=== PATIENT | male | born 1955 | race Caucasian/White ===

== ENCOUNTER → 2017-08-16 | Day surgery (SDC) | payer OTHER ==
[2017-08-15 08:27] VITALS: BMI 35.9
[~2017-08-16] MED LIST: BUPIVACAINE HCL/PF 0.5% (5MG/ML) 10 ML VIAL ONE; DEXAMETHASONE SOD PHOSPHATE 4 MG/1 ML VIAL ONE; LACTATED RINGERS SOLUTION 1,000 ML IV SCH; LIDOCAINE HCL/PF 2% SDV 5ML VIAL ONE; MIDAZOLAM HCL 2 MG/2 ML SINGLE DOSE VIAL ONE; ONDANSETRON 4 MG/2 ML VIAL IVPUSH PRN; PROPOFOL 20 ML ONE; oxyCODONE HCL 5 MG TABLET PO PRN
--- NOTE | 2017-08-16 11:04 | HP ---
[facility]ellite [facility] - Chief Complaint Chief Complaint: left knee pain - Past Medical History Allergies/Adverse Reactions: Allergies Allergy/AdvReac Type Severity Reaction Status Date / Time No Known Drug Allergies AdvReac Verified 08/15/17 08:31 - Current Medications Current Medications: Home Medications Medication Instructions Recorded Ascorbic Acid [Vitamin C -] 1,000 mg PO DAILY 11/17/13 Cholecalciferol (Vitamin D3) 1,000 unit PO DAILY 11/17/13 [Vitamin D] Garlic 1 each PO DAILY 11/17/13 Multivitamin [Multivitamins] 1 each PO DAILY 11/17/13 Losartan/Hydrochlorothiazide 1 each PO DAILY 07/11/16 [Losartan-Hctz 100-25 mg Tab] Vitamin B Complex 1 each PO DAILY 07/11/16 Oxycodone HCl/Acetaminophen 1 - 2 tab PO Q6H #30 tab MDD 8 08/16/17 [Percocet 5-325 mg Tablet -] Satellite Physical Exam - Physical Examination General Appearance: Well Nourished ENT: Clear Lung: Normal air movement Heart: Regular rate & rhythm Extremities: Other (left knee- + swelling, + ttp, decr rom, + mcmurrays, +apleys , nvi MRI + mmt, acl sprain) Neurological: Intact, Alert, Oriented Satellite Impression/Plan - Impression/Plan Impression: left knee internal derangement Operative Procedure: left knee arthroscopy Date to be Performed: 08/16/17
--- NOTE | 2017-08-16 13:30 | OP ---
Operative Note - Note: Operative Date: 08/16/17 Pre-Operative Diagnosis: LEFT KNEE INTERNAL DEARANGEMENT Operation: ARTHROSCOPY LEFT KNEE WITH MM, LM, AND CHONDROPLASTY OF THE TROCHLEA Post-Operative Diagnosis: Same as Pre-op Surgeon: Jomar Giordano Anesthesia: General Estimated Blood Loss (mls): 0 Operative Report Dictated: Yes
[2017-08-16 13:56] VITALS: TEMP 97.7
[2017-08-16 15:34] VITALS: BP 158/79; PULSE 83
--- NOTE | 2017-08-17 15:02 | OP ---
DATE OF OPERATION: 08/16/2017 PREOPERATIVE DIAGNOSIS: Internal derangement, left knee. POSTOPERATIVE DIAGNOSIS: Internal derangement, left knee. PROCEDURE: Arthroscopy, left knee, with partial medial and lateral meniscectomies and chondroplasty of the trochlea. SURGICAL ATTENDING: Jomar Giordano MD ANESTHESIA: General with LMA. CLOSURE: 4-0 nylon COMPLICATIONS: None. CONDITION: To recovery in stable condition. DESCRIPTION OF OPERATIVE PROCEDURE: Patient taken to the operating room on August 16, 2017. General anesthesia with LMA was administered by the anesthesiologist. Left lower extremity was prepped and draped in the usual sterile fashion. The medial and lateral infrapatellar portal sites were infiltrated with 1% Xylocaine with epinephrine. The 2 portals were then made with a 15-blade with blunt trocar. Scope was placed in the lateral infrapatellar portal and up into the suprapatellar pouch. The knee was inflated with a cocktail of 10 mL of 1% Xylocaine, 10 mL of 0.5% Marcaine, and 20 mL of arthroscopic fluid. This was allowed to sit in the knee for a few minutes to anesthetize the inside of the knee. The procedure was then started. The suprapatellar pouch was visualized to be clean. The medial and lateral gutters were visualized to be clean. The undersurfaces of the patella and trochlea were basically intact except for some grade 3 changes in the central portion of the trochlea. This was debrided of any loose articular cartilage using the arthroscopic shaver. With valgus stress on the knee, the medial compartment was entered. The medial meniscus was visualized and probed, found to have a complex tear debrided back to stable meniscal tissue utilizing meniscal biter and arthroscopic shaver. The medial femoral condyle was found to be intact, as was the medial tibial plateau. At 90 degrees the ACL was visualized and probed, found to be intact. In the figure of 4 position the lateral compartment was entered. The lateral meniscus had some midline radial tears. This was debrided back to smooth and stable meniscal tissues using meniscal biter and arthroscopic shaver. The lateral femoral condyle was found to be intact, as well as the lateral tibial plateau. The knee was irrigated with copious amounts of irrigation. The portals were closed with 4-0 nylon. Prior closure, 20 mL of 0.5% Marcaine was infused into the knee for postoperative analgesia. Sterile pressure dressing was placed over the knee, the patient awakened from anesthesia and transferred to recovery in stable condition with no complication. ESTIMATED BLOOD LOSS: Negligible. Bernabe [id number]
--- NOTE | 2017-08-19 17:00 | PATH ---
Surgical Pathology Report Patient Name: JENNY CHILD [facility]. Rec. #: [id number] /Age/Gender: 1955 (Age: 62) / M Account: [id number] Location: [facility] SURGICAL Taken: 08/16/2017 Received: 08/16/2017 Reported: 08/19/2017 Physicians: Jomar Giordano M.D. Specimen(s) Received LEFT KNEE SHAVINGS Clinical History Meniscus tear left knee Final Diagnosis KNEE SHAVINGS, LEFT, ARTHROSCOPY, MEDIAL AND LATERAL PARTIAL MENISCECTOMY AND CHONDROPLASTY: FRAGMENTS OF BENIGN CARTILAGE, FIBROADIPOSE TISSUE, AND SYNOVIUM. Electronically Signed Shanna Machado M.D. Gross Description Received in formalin, labeled "left knee shaving," is a 3.5 x 2.4 x 0.3 cm. aggregate of nuñez-yellow soft tissue fragments. A veterans contact representative portion is submitted in one cassette. 08/16/201708/16/2017
== END | disposition home or self-care (01) ==
LOC: JASU-SURG 10:53
PROVIDERS: ATTEND Orthopaedic Surgery
PROC: 0SBD4ZZ Excision of Left Knee Joint, Percutaneous Endoscopic Approach (ICD-10-PCS; principal; 2017-08-16 13:15)
DX: S83.232A Complex tear of medial meniscus, current injury, left knee, initial encounter (principal); X58.XXXA Exposure to other specified factors, initial encounter; Y93.9 Activity, unspecified; Y92.9 Unspecified place or not applicable
CPT/HCPCS: 88304-TC; 94760

== ENCOUNTER 2021-04-12 04:37 | Day surgery (SDC) | payer OTHER ==
[2021-04-11 10:41] VITALS: BMI 31.1
[2021-04-12] MEDS ORDERED: DEXAMETHASONE SOD PHOSPHATE 10 MG/1 ML VIAL ONE (08:52)
[2021-04-12] MEDS ORDERED: BUPIVACAINE HCL/PF 0.5% (5MG/ML) 10 ML VIAL ONE (08:52)
[2021-04-12] MEDS ORDERED: MIDAZOLAM HCL 2 MG/2 ML SINGLE DOSE VIAL ONE ×3 (08:58→09:29)
[2021-04-12] MEDS ORDERED: DEXAMETHASONE SOD PHOSPHATE 4 MG/1 ML VIAL ONE (09:28)
[2021-04-12] MEDS ORDERED: ONDANSETRON 4 MG/2 ML VIAL ONE (09:28)
[2021-04-12] MEDS ORDERED: ceFAZolin SODIUM 1 GM VIAL ONE (09:28)
[2021-04-12] MEDS ORDERED: LACTATED RINGERS SOLUTION 1,000 ML IV SCH (09:30)
[2021-04-12] MEDS ORDERED: oxyCODONE HCL 5 MG TABLET PO PRN (09:30)
[2021-04-12] MEDS ORDERED: ONDANSETRON 4 MG/2 ML VIAL IVPUSH PRN (09:30)
[2021-04-12] MEDS ORDERED: ACETAMINOPHEN 1000 MG/100 ML VIAL (NON FORMULARY) IVPB ONE (09:31)
[2021-04-12 09:44] LABS: PH,URINE 6.5 (5.0-8.0); URINE APPEARANCE CLEAR; URINE BILIRUBIN NEGATIVE (NEGATIVE); URINE COLOR YELLOW; URINE GLUCOSE (UA) NEGATIVE (NEGATIVE); URINE KETONE NEGATIVE (NEGATIVE); URINE LEUK ESTERASE NEGATIVE (NEGATIVE); URINE NITRITE NEGATIVE (NEGATIVE); URINE PROTEIN NEGATIVE (NEGATIVE); URINE UROBILINOGEN 0.2 mg/dL (0.2-1.0)
[2021-04-12] MEDS ORDERED: oxyCODONE HCL 10 MG SUSTAINED ACTING TABLET ONE (11:36)
[2021-04-12 13:13] VITALS: BP 126/67; PULSE 67
[2021-04-12 13:56] VITALS: TEMP 97.7
== END 2021-04-12 13:30 | disposition home or self-care (01) ==
LOC: JASU-SURG 04:37
PROVIDERS: ATTEND Orthopaedic Surgery
PROC: 0RCJ4ZZ Extirpation of Matter from Right Shoulder Joint, Percutaneous Endoscopic Approach (ICD-10-PCS; 2021-04-12)
PROC: 0LQ14ZZ Repair Right Shoulder Tendon, Percutaneous Endoscopic Approach (ICD-10-PCS; principal; 2021-04-12 11:00)
PROC: 0LS34ZZ Reposition Right Upper Arm Tendon, Percutaneous Endoscopic Approach (ICD-10-PCS; 2021-04-12 11:00)
DX: M75.101 Unspecified rotator cuff tear or rupture of right shoulder, not specified as traumatic (principal); M24.011 Loose body in right shoulder; M66.811 Spontaneous rupture of other tendons, right shoulder
CPT/HCPCS: 81003; 94760; J1100